=== PATIENT | female | born 1935 | race Caucasian/White ===

== ENCOUNTER 2022-04-02 11:08 | Observation (INO) | payer MEDICARE, OTHER ==
[2022-04-02 12:01] LABS: #Eosinphils 0.1 thou/uL (0.0-0.7); #Lymphocytes 0.9 thou/uL (1.20-3.40); #Monocytes 0.4 thou/uL (0.11-0.59); #Neutrophils 2.5 thou/uL (1.40-6.50); %Basophils 0.8 % (0.0-1.0); %Eosinophils 1.9 % (0.0-10.0); %Lymphocytes 23.9 % (21.0-51.0); %Neutrophils 63.5 % (42.0-75.0); Hemoglobin 12.3 g/dL (12.0-16.0); Mean Corpuscular Hemoglobin 31.4 pg (27.0-31.0); Mean Corpuscular Volume 95.4 fl (78.0-98.0); Mean Platelet Volume 8.5 fL (7.4-10.4); Platelet Count 207 10x3/uL (130-400); RBC Distribution Width 11.8 % (11.5-14.5); Red Blood Cell (RBC) Count 3.92 mill/uL (4.20-5.40); White Blood Cell (WBC) Count 3.9 10x3/uL (4.8-10.8)
[2022-04-02 12:04] LABS: INR-International Normal Ratio 0.9; PTT 28.3 sec (22.9-36.1); Prothrombin Time 12.5 sec (12.0-14.7)
[2022-04-02] MEDS ORDERED: Aspirin Chewable 81 MG TAB ONE (12:08)
[2022-04-02 12:13] LABS: ALT (SGPT) 45 U/L (8-55); AST (SGOT) 48 U/L (5-34); Albumin 4.3 g/dL (3.4-4.8); Alkaline Phosphatase 59 U/L (40-110); Anion Gap 10 mmol/L (10-20); BUN (Urea Nitrogen) 19 mg/dL (9.8-20.1); Bilirubin, Total 0.8 mg/dL (0.2-1.2); Calc. Creatinine Clearance 0 mL/min (70-130); Calcium 10.6 mg/dL (7.8-10.44); Carbon Dioxide 31 mmol/L (23-31); Chloride 98 mmol/L (98-107); Estimated GFR 57; Glucose 116 mg/dL (83-110); Potassium 4.1 mmol/L (3.5-5.1); Protein, Total 7.3 g/dL (5.8-8.1)
[2022-04-02 12:16] LABS: Bilirubin Negative (Negative); Blood, Urine Negative (Negative); Clarity Clear (Clear); Glucose, Urine (Dipstick) Normal (Negative); Ketone, Urine Negative (Negative); Leukocyte Negative Leu/uL (Negative); Nitrite Negative (Negative); Protein, Urine (Dipstick) Negative (Neg-Trace); Specific Gravity, Urine 1.013 (1.002-1.036); Urobilinogen Normal mg/dL (Less than 2); pH, Urine 7.5 (5.0-9.0)
[2022-04-02 12:38] LABS: Sodium 138 mmol/L (136-145)
[2022-04-02] MEDS ORDERED: Acetaminophen 325 MG TAB PO PRN (13:23)
[2022-04-02] MEDS ORDERED: hydrALAZINE 20 MG/ML VIAL SLOW IVP PRN (13:23)
[2022-04-02] MEDS ORDERED: Acetaminophen 650 MG Suppository PR PRN (13:23)
[2022-04-02] MEDS ORDERED: Ondansetron ODT 4 MG TAB PO PRN (13:23)
[2022-04-02] MEDS ORDERED: Ondansetron PF 4 MG/2 ML Vial IVP PRN (13:23)
[2022-04-02 15:14] LABS: SARS-CoV-2 NAA Rapid Test DETECTED (NotDetected)
[2022-04-02] MEDS ORDERED: Atorvastatin Calcium 40 MG TAB PO SCH (21:00)
[2022-04-03 05:41] LABS: #Eosinphils 0.1 thou/uL (0.0-0.7); #Lymphocytes 1.5 thou/uL (1.20-3.40); #Monocytes 0.5 thou/uL (0.11-0.59); #Neutrophils 2.3 thou/uL (1.40-6.50); %Basophils 0.8 % (0.0-1.0); %Eosinophils 2.9 % (0.0-10.0); %Lymphocytes 34.4 % (21.0-51.0); %Monocytes 11.2 % (0.0-10.0); %Neutrophils 50.8 % (42.0-75.0); Hemoglobin 11.6 g/dL (12.0-16.0); Mean Corpuscular HGB CONC 33.2 g/dL (32.0-36.0); Mean Corpuscular Hemoglobin 31.5 pg (27.0-31.0); Mean Platelet Volume 8.5 fL (7.4-10.4); Platelet Count 171 10x3/uL (130-400); RBC Distribution Width 11.7 % (11.5-14.5); Red Blood Cell (RBC) Count 3.69 mill/uL (4.20-5.40); White Blood Cell (WBC) Count 4.5 10x3/uL (4.8-10.8)
[2022-04-03 05:51] LABS: Hemoglobin A1c 4.9 % (4.0-6.0)
[2022-04-03 06:10] LABS: Anion Gap 11 mmol/L (10-20); BUN (Urea Nitrogen) 20 mg/dL (9.8-20.1); Calc. Creatinine Clearance 42 mL/min (70-130); Calcium 9.8 mg/dL (7.8-10.44); Carbon Dioxide 26 mmol/L (23-31); Cardiac Risk 2.4 (Less than 4.5); Chloride 104 mmol/L (98-107); Cholesterol 135 mg/dl (< 200 Desired); Estimated GFR 72; Glucose 80 mg/dL (83-110); HDL Cholesterol 57 mg/dL (>60 Neg Risk); LDL Cholesterol, Calculated 68 mg/dL; Potassium 3.9 mmol/L (3.5-5.1); Sodium 137 mmol/L (136-145); Triglycerides 50 mg/dL (Less than 150)
[2022-04-03 08:04] VITALS: BMI 18.1
[2022-04-03] MEDS ORDERED: Aspirin 81 mg Enteric Coated Tablet PO SCH (09:00)
[2022-04-03] MEDS ORDERED: Clopidogrel Bisulfate 75 MG TAB PO SCH (09:00)
[2022-04-03] MEDS ORDERED: hydrALAZINE 20 MG/ML VIAL SLOW IVP PRN (09:35)
[2022-04-03 11:55] VITALS: BP 132/61; TEMP 97.7
== END 2022-04-03 15:40 | disposition home or self-care (01) ==
LOC: ERS 11:08 → ERHOLD 12:50 → NEURO 21:19
PROVIDERS: ADMIT Family Medicine; ATTEND Family Medicine
DX: G45.9 Transient cerebral ischemic attack, unspecified (principal); I10 Essential (primary) hypertension; E78.5 Hyperlipidemia, unspecified; N32.81 Overactive bladder; U07.1 COVID-19; I07.1 Rheumatic tricuspid insufficiency; Z66 Do not resuscitate; Z86.73 Personal history of transient ischemic attack (TIA), and cerebral infarction without residual deficits; Z79.02 Long term (current) use of antithrombotics/antiplatelets; Z79.82 Long term (current) use of aspirin; Z79.899 Other long term (current) drug therapy
CPT/HCPCS: 51701; 70450; 70551; 80048; 80053; 80061; 81003; 82962; 83036; 84443; 85025 ×2; 85610; 85730; 87086; 93005; 93306; 93880; 96372; 99285; G0378 ×3; U0002; 36415; 36416; J1650

== ENCOUNTER 2022-05-02 10:22 | Outpatient (CLI) | payer MEDICARE | END 2022-05-02 10:23 | disposition home or self-care (01) | LOC: BICMAMMO 10:22 | PROVIDERS: ATTEND Nurse Practitioner Family | DX: Z13.820 Encounter for screening for osteoporosis (principal); Z78.0 Asymptomatic menopausal state; N95.9 Unspecified menopausal and perimenopausal disorder; M85.89 Other specified disorders of bone density and structure, multiple sites | CPT/HCPCS: 77080 ==

== ENCOUNTER → 2022-05-24 | Outpatient (CLI) | payer OTHER | LOC: SLEEPLAB 17:30 | PROVIDERS: ATTEND Nurse Practitioner Family | DX: G47.33 Obstructive sleep apnea (adult) (pediatric) (principal); R53.83 Other fatigue; R06.83 Snoring; I10 Essential (primary) hypertension; G47.00 Insomnia, unspecified; I63.9 Cerebral infarction, unspecified; G81.90 Hemiplegia, unspecified affecting unspecified side; R09.02 Hypoxemia | CPT/HCPCS: 95800 ==

== ENCOUNTER 2022-09-21 08:20 | Outpatient (CLI) | payer OTHER | END 2022-09-21 08:21 | disposition home or self-care (01) | LOC: NM 08:20 | PROVIDERS: ATTEND Psychiatry & Neurology Neurology | DX: I63.539 Cerebral infarction due to unspecified occlusion or stenosis of unspecified posterior cerebral artery (principal); R26.81 Unsteadiness on feet; G20 Parkinson's disease | CPT/HCPCS: 78803; A9584 ×2 ==

== ENCOUNTER 2023-02-15 15:23 | Emergency (ER) | payer OTHER | END 2023-02-15 16:42 | disposition home or self-care (01) | LOC: ERS 15:23 | DX: S01.311A Laceration without foreign body of right ear, initial encounter (principal); W22.8XXA Striking against or struck by other objects, initial encounter | CPT/HCPCS: 12011; 70450 ==

== ENCOUNTER 2023-03-15 12:57 | Emergency (ER) | payer OTHER | END 2023-03-15 15:09 | disposition home or self-care (01) | LOC: ERS 12:57 | DX: S09.90XA Unspecified injury of head, initial encounter (principal); I10 Essential (primary) hypertension; W18.30XA Fall on same level, unspecified, initial encounter; Z79.82 Long term (current) use of aspirin | CPT/HCPCS: 70450; 72125 ==

== ENCOUNTER 2023-03-30 15:19 | Emergency (ER) | payer OTHER | END 2023-03-30 18:47 | disposition home or self-care (01) | LOC: ERS 15:19 | DX: S06.0X0A Concussion without loss of consciousness, initial encounter (principal); S05.11XA Contusion of eyeball and orbital tissues, right eye, initial encounter; I10 Essential (primary) hypertension; I48.91 Unspecified atrial fibrillation; G20.A1 Parkinson's disease without dyskinesia, without mention of fluctuations; W01.198A Fall on same level from slipping, tripping and stumbling with subsequent striking against other object, initial encounter; Z86.73 Personal history of transient ischemic attack (TIA), and cerebral infarction without residual deficits; Z55.6 Problems related to health literacy; Z75.3 Unavailability and inaccessibility of health-care facilities; Z79.899 Other long term (current) drug therapy | CPT/HCPCS: 70450 ==

== ENCOUNTER 2023-05-03 11:24 | Outpatient (CLI) | payer OTHER | END 2023-05-03 11:25 | disposition home or self-care (01) | LOC: BICRAD 11:24 | PROVIDERS: ATTEND Nurse Practitioner Family | DX: R91.8 Other nonspecific abnormal finding of lung field (principal) | CPT/HCPCS: 71046 ==